=== PATIENT | male | born 1980 | race Caucasian/White ===

== ENCOUNTER → 2017-05-26 | Outpatient (CLI) | payer OTHER ==
[2017-05-26 13:06] LABS: ALBUMIN 4.2 gm/dl (3.4-5.0); ALT/SGPT 34 U/L (12-78); BLOOD UREA NITROGEN 8 mg/dl (7-18); CALCIUM 9.7 mg/dl (8.5-10.1); CARBON DIOXIDE 28 mmol/L (21-32); CHOLESTEROL 208 mg/dl (0-200); CREATININE 1.08 mg/dl (0.60-1.40); GLUCOSE 107 mg/dl (70-99); POTASSIUM 4.3 mmol/L (3.5-5.1); SODIUM 137 mmol/L (136-145)
[2017-05-26 13:09] LABS: ALKALINE PHOSPHATASE 83 U/L (45-117); AST/SGOT 13 U/L (15-37); LDL CHOLESTEROL CALCULATED 122 mg/dl; TOTAL PROTEIN 8.1 gm/dl (6.4-8.2)
== END | disposition home or self-care (01) ==
LOC: C.LABPVFM 08:26
PROVIDERS: ATTEND Nurse Practitioner Family
DX: I10 Essential (primary) hypertension (principal); E78.5 Hyperlipidemia, unspecified

== ENCOUNTER → 2017-06-26 | Outpatient (CLI) | payer OTHER ==
--- NOTE | 2017-06-26 16:29 | DIAGNOSTIC IMAGING REPORT ---
L KNEE 3 VIEWS CLINICAL HISTORY: 36 years-old Male presenting with KNEE PAIN. TECHNIQUE: Frontal, lateral, and sunrise views of the left knee were obtained. COMPARISON: None. FINDINGS: And mild osteophytosis noted at the lateral compartment at the lateral tibial plateau. Minimal osteophytosis suggested at the patellofemoral compartment. No joint space loss. No acute fracture or malalignment. No significant joint effusion. No patellar subluxation. No soft tissue abnormality. 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 Electronically signed by: Stephen Honr M.D. 06/26/2017 4:28 PM Dictated Date/Time: 06/26/2017 4:27 PM
== END | disposition home or self-care (01) ==
LOC: C.RADPV 16:06
PROVIDERS: ATTEND Nurse Practitioner Family
DX: M25.562 Pain in left knee (principal)